=== PATIENT | female | born 1955 | race Caucasian/White ===

== ENCOUNTER 2016-12-18 20:21 | Emergency (ER) | payer BC ==
[~2016-12-18] VITALS: Ht 162.6 cm; Wt 85.0 kg
[~2016-12-18 20:21] MED LIST: CEPHALEXIN500 MG PO; CIPRO500 MG OR; LIPITOR80 MG PO; NORCO1 TA1 PO; PAXIL30 MG PO; ULTRAM50 M1 OR
[2016-12-18] MEDS ORDERED: LEVOTHYROXIN75 MC1 PO (20:36)
[2016-12-19] MEDS ORDERED: PERCOCET 5/325M1 TAB PO (00:02)
[2016-12-19] MEDS ORDERED: ORPHENADRINE100 MG PO (00:02)
[2016-12-19 00:25] VITALS: BP 146/84
== END 2016-12-19 00:25 | disposition home or self-care (01) | DRG 552 ==
LOC: ED 20:21
DX: S22.019A Unspecified fracture of first thoracic vertebra, initial encounter for closed fracture (principal); W31.89XA Contact with other specified machinery, initial encounter; Y93.H9 Activity, other involving exterior property and land maintenance, building and construction; Y92.007 Garden or yard of unspecified non-institutional (private) residence as the place of occurrence of the external cause

== ENCOUNTER 2018-06-09 17:42 | Emergency (ER) | payer BC ==
[~2018-06-09] VITALS: Ht 162.6 cm; Wt 87.0 kg
[~2018-06-09 17:42] MED LIST changes: +LEVOTHYROXIN75 MC1 PO; +ORPHENADRINE100 MG PO; +PERCOCET 5/325M1 TAB PO
[2018-06-09 18:27] LABS: HEMATOCRIT 45.6 % (37.0-47.0); HEMOGLOBIN 14.6 g/dl (12.0-16.0); IMMATURE GRANULOCYTES 0.3 % (0.0-5.0); MEAN CELL VOLUME 92.3 fL CALC (80.0-100.0); MEAN CORPUSCULAR HGB 29.6 pG CALC (26.0-32.0); NEUT# 4.94 thou/uL (2.00-7.15); RED BLOOD COUNT 4.94 mill/uL (4.20-5.60); RED CELL DISTRI WIDTH 12.7 % (11.5-15.5)
[2018-06-09 18:42] LABS: ALBUMIN 4.3 g/dL (3.2-5.0); ALKALINE PHOSPHATASE 154 u/l (38-126); ANION GAP 14 (6-22 (CALC)); BILIRUBIN, TOTAL 0.9 mg/dL (0.0-1.4); BUN 16 mg/dL (8-23); BUN/CREATININE RATIO 19 (12-20 (CALC)); CARBON DIOXIDE 23 mmol/l (22-30); CHLORIDE 107 mmol/l (95-108); CREATININE 0.8 mg/dL (0.5-1.0); GFR > 60 ML/MIN (>=60 (CALC)); GFR FOR AFR.AMER. > 60 ML/MIN (>=60 (CALC)); LIPASE 140 u/l (23-300); POTASSIUM 4.1 mmol/l (3.5-5.1); SGOT/AST 30 u/l (9-36); SODIUM 139 mmol/l (137-146); TOTAL PROTEIN 6.7 g/dL (6.3-8.2)
[2018-06-09 20:16] LABS: URINE BILIRUBIN - DIPSTICK NEGATIVE (NEGATIVE); URINE BLOOD DIPSTICK MODERATE (NEGATIVE); URINE COLOR YELLOW; URINE GLUCOSE - DIPSTICK NEGATIVE (NEGATIVE); URINE KETONE TRACE mg/dL (NEGATIVE); URINE LEUK ESTERASE TRACE (NEGATIVE); URINE PROTEIN - DIPSTICK NEGATIVE (NEG-TRACE); URINE SPECIFIC GRAVITY 1.015; URINE UROBILINOGEN - DIPSTICK 0.2 E.U./dL (0.2)
[2018-06-09 20:17] LABS: URINE NITRITE - DIPSTICK POSITIVE (Negative)
[2018-06-09 20:31] LABS: URINE BACTERIA MANY hpf; URINE SQUAMOUS EPITHELIAL CELL FEW EPI/hpf (0-FEW)
[2018-06-09] MEDS ORDERED: BACTRIM DS1 TAB PO (21:07)
[2018-06-09] MEDS ORDERED: TORADOL PO (21:07)
[2018-06-09 21:40] VITALS: BP 119/86
== END 2018-06-09 21:40 | disposition home or self-care (01) | DRG 690 ==
LOC: ED 17:42
PROVIDERS: Emergency Medicine
DX: N39.0 Urinary tract infection, site not specified (principal); B96.20 Unspecified Escherichia coli [E. coli] as the cause of diseases classified elsewhere; R10.9 Unspecified abdominal pain; Z87.442 Personal history of urinary calculi

== ENCOUNTER 2018-06-11 16:28 | Emergency (ER) | payer BC ==
[~2018-06-11] VITALS: Ht 162.6 cm; Wt 87.0 kg
[~2018-06-11 16:28] MED LIST changes: +BACTRIM DS1 TAB PO; +TORADOL PO
[2018-06-11 18:10] LABS: URINE BILIRUBIN - DIPSTICK NEGATIVE (NEGATIVE); URINE BLOOD DIPSTICK SMALL (NEGATIVE); URINE COLOR YELLOW; URINE GLUCOSE - DIPSTICK NEGATIVE (NEGATIVE); URINE KETONE NEGATIVE (NEGATIVE); URINE LEUK ESTERASE TRACE (Negative); URINE NITRITE - DIPSTICK NEGATIVE (Negative); URINE PROTEIN - DIPSTICK NEGATIVE (NEG-TRACE)
[2018-06-11 18:28] LABS: HEMATOCRIT 44.2 % (37.0-47.0); HEMOGLOBIN 14.5 g/dl (12.0-16.0); IMMATURE GRANULOCYTES 0.3 % (0.0-5.0); MEAN CELL VOLUME 90.9 fL CALC (80.0-100.0); MEAN CORPUSCULAR HGB 29.8 pG CALC (26.0-32.0); MEAN CORPUSCULAR HGB CONC 32.8 g/L CALC (32.0-36.0); NEUT# 5.28 thou/uL (2.00-7.15); RED BLOOD COUNT 4.86 mill/uL (4.20-5.60); RED CELL DISTRI WIDTH 12.5 % (11.5-15.5)
[2018-06-11 18:29] LABS: URINE CLARITY CLEAR
[2018-06-11 18:30] LABS: URINE SQUAMOUS EPITHELIAL CELL FEW EPI/hpf (0-FEW); URINE WBC 0-2 WBC/hpf (0-5)
[2018-06-11 18:41] LABS: ALBUMIN 4.3 g/dL (3.2-5.0); ALKALINE PHOSPHATASE 157 u/l (38-126); ANION GAP 13 (6-22 (CALC)); BILIRUBIN, TOTAL 0.9 mg/dL (0.0-1.4); BUN 13 mg/dL (8-23); BUN/CREATININE RATIO 12 (12-20 (CALC)); CARBON DIOXIDE 25 mmol/l (22-30); CHLORIDE 105 mmol/l (95-108); CREATININE 1.1 mg/dL (0.5-1.0); GFR 50 ML/MIN (>=60 (CALC)); GFR FOR AFR.AMER. > 60 ML/MIN (>=60 (CALC)); POTASSIUM 4.5 mmol/l (3.5-5.1); SGOT/AST 29 u/l (9-36); SODIUM 139 mmol/l (137-146); TOTAL PROTEIN 6.6 g/dL (6.3-8.2)
[2018-06-11] MEDS ORDERED: ZOFRAN4 MG/TAB PO (19:42)
[2018-06-11 19:55] VITALS: BP 134/92
== END 2018-06-11 19:55 | disposition home or self-care (01) | DRG 690 ==
LOC: ED 16:28
PROVIDERS: Emergency Medicine
DX: N39.0 Urinary tract infection, site not specified (principal); R11.0 Nausea; R10.9 Unspecified abdominal pain